=== PATIENT | female | born 1995 | race Caucasian/White ===

== ENCOUNTER 2020-01-11 19:43 | Emergency (ER) | payer SELFPAY ==
[2020-01-11 19:45] VITALS: BP 148/95; PULSE 63; RESP 17; TEMP 36.7; O2SAT 100; BMI 31.7
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
[2020-01-11 20:23] VITALS: BP 148/95; PULSE 63; RESP 17; TEMP 36.7; O2SAT 100
== END 2020-01-11 20:24 | disposition home or self-care (01) ==
PROVIDERS: Emergency Provider Nurse Practitioner Family
DX: S46.912A Strain of unspecified muscle, fascia and tendon at shoulder and upper arm level, left arm, initial encounter (principal); V48.0XXA Car driver injured in noncollision transport accident in nontraffic accident, initial encounter; Y92.488 Other paved roadways as the place of occurrence of the external cause
CPT/HCPCS: 99201

== ENCOUNTER 2020-03-22 17:19 | Emergency (ER) | payer MEDICAID, SELFPAY ==
[2020-03-22 17:33] VITALS: BP 130/61; PULSE 110; RESP 17; TEMP 38.2; O2SAT 100; BMI 35.2
[2020-03-22 17:51] VITALS: BP 130/61; PULSE 110; RESP 17; TEMP 38.2; O2SAT 100; BMI 34.9
--- NOTE | 2020-03-22 18:02 | HMH.EDUTC ---
[facility] [place] Clinical Impression: Cellulitis Qualifiers: Site of cellulitis: extremity Site of cellulitis of extremity: lower extremity Laterality: right Qualified Code(s): L03.115 - Cellulitis of right lower limb Disposition: Home, Self-Care Condition on Discharge: Good Instructions: DI for Cellulitis -- Adult, Cellulitis, DI for Fever (Symptom) -- Adult Additional Instructions: *Start antibiotic(s) immediately and be sure to take as ordered for the FULL length of time although you may be feeling better or start to see improvement in the next 24-48 hours *Monitor closely. Outlined redness so that you can monitor easier. Follow up immediately for new or worsening symptoms including but not limited to redness, swelling, streaking from site fever or chills. *Warm compress 15 minutes 3-4 times day Take medication as prescribed *Monitor Temp. Tylenol every 4 hours as needed and ibuprofen every 6 hours as needed (as long as your primary care doctor has told you that it is ok to take both. For fever, aches, pain. ER if no less that 101 despite Tylenol and ibuprofen Follow up with your family doctor/primary care physician in the next 48-72 hours if no improvement Prescriptions: clindamycin HCL [Clindamycin HCl 300mg Cap] 300 mg PO Q6 7 Days #28 cap Transmission Status: Received by [id number] Referrals: PCP,No [Primary Care Provider] - As needed Forms: Work/School Release Time of Disposition: 20:42 Medical Decision Making - Jamarcus Inquiry Pt receiving controlled substance: No Jamarcus was queried for this patient: No Vital Signs: 03/22/20 17:33 03/22/20 17:51 03/22/20 18:30 Temperature 100.7 F H 100.7 F H 100.7 F H Temperature Source Oral Oral Pulse Rate 110 H Pulse Rate [Right] 110 H 110 H Respiratory Rate 17 17 17 Blood Pressure 130/61 Blood Pressure [Right Arm] 130/61 130/61 Blood Pressure Mean [Right Arm] 84 84 02 Sat by Pulse Oximetry 100 100 Oxygen Delivery Method Room Air Room Air Medical Decision Narrative: Discussed with patient and recommended that she be transferred to the ED for further work up and evaluation and patient declined at this time Advised that she would try oral antibiotics and do order for venous doppler and if it got any worse she would return to the ED for further treatment again recommended transfer and patient declined Dr Whitney ER physician observed area and agreed with DX of cellulitis [facility] [place] HPI - General Stated complaint: pain and redness around previous scar on right leg Time Seen by Provider: 03/22/20 18:02 Mode of Arrival: Ambulatory Source of Information: Patient Limitations: No Limitations Description of Symptoms (Recalled from Triage Doc. by RN): Redness, swelling, and pain to the RLE since last nigt. Pt states she also ran a fever of 102 earlier today. HEENT Symptoms (Recalled from RN notes): No Resp Symptoms (Recalled from RN notes): No Skin Symptoms (Recalled from RN notes): Yes MS Symptoms (Recalled from RN notes): No Functional Status (Recalled from RN notes): WNL - History of Present Illness Provider Complaint: Patient state that yesterday she noticed her right leg hurt on and off all day States that last night it was achying after she got home States that this morning when she woke up she noticed her leg looked red and swollen around her right lower leg where she had surgery years ago States that as the day went on she continued to have some swelling and redness in the leg and it was warm to touch States that she got into a cool bath and it helped a little with the pain and discomfort States that her fever in the middle of the night was 102.0 States that she has continued to have low grade fever on and off all day so mother talked her into coming in and getting it checked out - Related Data Previous Rx's Medication Instructions Recorded Ibuprofen [Ibuprofen 600mg 600 mg PO Q6HP PRN #30 tab 01/11/20 Tablet] Methocarbamol [Robaxin 500mg Tab
[2020-03-22 18:30] VITALS: BP 130/61; PULSE 110; RESP 17; TEMP 38.2; O2SAT 100
== END 2020-03-22 18:33 | disposition home or self-care (01) ==
PROVIDERS: Emergency Provider Nurse Practitioner
DX: L03.115 Cellulitis of right lower limb (principal)
CPT/HCPCS: 99201